=== PATIENT | female | born 1930 | race Caucasian/White ===

== ENCOUNTER 2017-01-09 18:15 | Emergency (ER) | payer MEDICARE, BC ==
[2017-01-09 18:30] VITALS: BP 117/57; PULSE 75; RESP 18; TEMP 98.1
[2017-01-09] MEDS ORDERED: MORPHINE SULFATE 10 MG/ML SYRINGE IM STA (18:50)
--- NOTE | 2017-01-09 18:56 | ED ---
Fall HPI - General Chief Complaint: Fall Stated Complaint: Fall rt arm injury Time Seen by Provider: 01/09/17 18:38 Source: patient, RN notes reviewed, old records reviewed Mode of arrival: wheelchair - History of Present Illness Initial Comments: Avinash showed feel presents emergency Department chief complaint of tripping over a curb and falling and hitting her left side of her forehead and right upper arm. She also reports that she hit her right knee. She reports that she did not lose consciousness. She is not on blood thinners. She states that the pain is worse whenever she has to move her upper arm and shoulder. She has had no previous fractures or no new injuries. She states that she has full range of motion in her hands and fingers. She also reports some pain with flexion and extension of the elbow. Patient denies any nausea or vomiting or any other symptoms. She states that she has history of high blood pressure. - Related Data Previous Rx's Medication Instructions Recorded HYDROcodone/APAP 5-325MG [Firth 1 - 2 tab PO Q6HR PRN #20 tab 01/09/17 5-325] Ondansetron Odt [Zofran Odt] 4 mg PO Q8HR PRN #12 tab 01/09/17 Allergies Allergy/AdvReac Type Severity Reaction Status Date / Time No Known Allergies Allergy Verified 01/09/17 18:30 Review of Systems ROS Statement: Those systems with pertinent positive or pertinent negative responses have been documented in the HPI. ROS Other: All systems not noted in ROS Statement are negative. Past Medical History Past Medical History: Hyperlipidemia, Hypertension History of Any Multi-Drug Resistant Organisms: None Reported Past Surgical History: Appendectomy, Heart Catheterization With Stent Past Psychological History: Depression Smoking Status: Never smoker Past Alcohol Use History: None Reported Past Drug Use History: None Reported General Exam - General Exam Comments Initial Comments: Pleasant 86-year-old female. Patient does appear in moderate discomfort. Limitations: no limitations General appearance: alert, in no apparent distress Head exam: Present: atraumatic, normocephalic, normal inspection Eye exam: Present: normal appearance, PERRL, EOMI. Absent: scleral icterus, conjunctival injection, periorbital swelling ENT exam: Present: normal exam, mucous membranes moist Neck exam: Present: normal inspection. Absent: tenderness, meningismus, lymphadenopathy Respiratory exam: Present: normal lung sounds bilaterally. Absent: respiratory distress, wheezes, rales, rhonchi, stridor Cardiovascular Exam: Present: regular rate, normal rhythm, normal heart sounds. Absent: systolic murmur, diastolic murmur, rubs, gallop, clicks GI/Abdominal exam: Present: soft, normal bowel sounds. Absent: distended, tenderness, guarding, rebound, rigid Extremities exam: Present: normal inspection, full ROM, normal capillary refill. Absent: tenderness, pedal edema, joint swelling, calf tenderness Right Shoulder Exam: Absent: normal inspection, full ROM Upper Arm exam: Present: tenderness, swelling. Absent: normal inspection, full ROM Elbow exam: Present: normal inspection, tenderness, swelling. Absent: full ROM Forearm Wrist exam: Present: normal inspection, full ROM Hand Wrist exam: Present: normal inspection, full ROM Vascular: Present: normal capillary refill Back exam: Present: normal inspection Neurological exam: Present: alert, oriented X3, CN II-XII intact Psychiatric exam: Present: normal affect, normal mood Skin exam: Present: warm, dry, intact, normal color. Absent: rash Course Vital Signs 01/09/17 18:26 Temperature 98.1 F Pulse Rate 75 Respiratory 18 Rate Blood Pressure 117/57 O2 Sat by Pulse 99 Oximetry Medical Decision Making - Medical Decision Making 86 showed feel presents emergency Department chief complaint of tripping over a curb and falling and hitting her left side of her forehead and right upper arm. She also reports that she hit her right knee. She reports that she did not lose consciousness. She is not on blood thinners. She states that the pain is worse whenever she has to move her upper arm and shoulder. Patient x-rays reviewed a significant comminuted fracture of the right proximal humerus. Patient CT brain was negative for any acute process. Patient was put in a sling and is nervous intact distal to the fracture. Patient's family felt comfortable with taking care of her at home. Patient will be discharged with a prescription for pain medication and advised to follow-up with Dr. Ocampo tomorrow morning. He did review the images and to discuss this case with Dr. Judd. Patient will be discharged at this time with head injury instructions and course of pain medication. - Radiology Data Radiology results: report reviewed There is an acute comminuted displaced fracture of the surgical neck of the right proximal humerus with just greater than [address] brain and C-spine shows there is no acute fracture dislocation evident the cervical spine. The mineralization and multilevel degenerative changes are shown a C6-C7. At C5-C6. There is no acute intracranial hemorrhage or midline shift seen. Moderate diffuse or atrophy and chronic small vessel ischemic change noted from progression of 2010 study. Small tiny acute left frontal scalp hematomas noted. Disposition Clinical Impression: Fracture of humerus, proximal, right, closed, Head injury, closed, without LOC Disposition: HOME SELF-CARE Condition: Good Instructions: Fall Prevention for Older Adults (ED), Proximal Humerus Fracture (ED) Additional Instructions: Patient advised to sleep upright with lots follows propping up the arm. Follow- up with Dr. Ocampo tomorrow morning. Take pain medication as directed. Patient advised to return to the emergency department if any alarming signs or symptoms occur. Call Dr. Ocampo in the morning and schedule appointment as soon as possible. Prescriptions: HYDROcodone/APAP 5-325MG [Firth 5-325] 1 - 2 tab PO Q6HR PRN #20 tab PRN Reason: Pain Ondansetron Odt [Zofran Odt] 4 mg PO Q8HR PRN #12 tab PRN Reason: Nausea Referrals: Torrie Jose MD [Primary Care Provider] - 1-2 days Enrique Ocampo MD [STAFF PHYSICIAN] - 1-2 days Time of Disposition: 20:13
--- NOTE | 2017-01-09 19:31 | CT ---
EXAMINATION TYPE: CT brain cspine wo con DATE OF EXAM: 01/09/2017 COMPARISON: CT brain November 17, 2009 HISTORY: Fall injury today with headache and neck pain. CT DLP: 1261.6 mGycm. Automated Exposure Control for Dose Reduction was Utilized. TECHNIQUE: CT scan of the head and cervical spine are performed without contrast. FINDINGS: There is no acute intracranial hemorrhage or midline shift identified. There is ventricul ar and sulcal prominence consistent with diffuse cerebral atrophy. There is low-attenuation in the pe riventricular white matter. Progression in findings from prior CT is noted. Right lens is thinned si milar to prior. Visualized paranasal sinuses are clear. The calvarium is intact. Small left frontal a cute scalp hematoma is seen on axial image 34 Cervical spine is visualized in its entirety from C1 through upper thoracic levels and demonstrates s atisfactory alignment without evidence of acute fracture or dislocation. Prevertebral soft tissue ap pears within normal limits. The C1-C2 articulation is within normal limits on the coronal images. Osseous structures are demineralized. Vertebral body heights are maintained. There is moderate disc s pace narrowing and spurring C6-C7 level. There is calcified disc herniation effacing anterior thecal sac C5-C6 level on sagittal and axial images. Review of axial images shows multilevel uncovertebral f acet degenerative changes on the right from C2-C3 through C5-C6 level. Moderate to advanced right-margareth ed neural foraminal narrowing is seen at C4-C5 level on axial image 38. There is asymmetric moderate left-sided neural foraminal narrowing C6-C7 level due to marginal spurring. Visualized lung apices ar e clear. Thyroid gland is felt within normal limits. IMPRESSION: 1. There is no acute fracture or dislocation evident in the cervical spine. Demineralization and mult ilevel degenerative changes are seen as detailed above. 2. No acute intracranial hemorrhage or midline shift is seen. There is moderate diffuse cerebral atro phy and chronic small vessel ischemic change noted with progression from 2010 study identified. Small to tiny acute left frontal scalp hematoma noted.
--- NOTE | 2017-01-09 19:34 | XR ---
EXAMINATION TYPE: XR humerus RT, XR elbow complete RT DATE OF EXAM: 01/09/2017 CLINICAL HISTORY: Pain after fall injury. TECHNIQUE: Two views of the right humerus are obtained. 3 views of right elbow are obtained. COMPARISON: None. FINDINGS: There is acute comminuted fracture surgical neck of right proximal humerus. Distal fractur e fragment is slightly displaced by 1.3 cm. There is 3 cm fragment including greater tuberosity noted . Osseous structures are demineralized. Acromioclavicular joint is maintained. The overlying soft ti ssue appears within normal limits. Images of right elbow show no additional acute fracture. No abnormal fat pad signs are seen. Overlyin g soft tissue is unremarkable. IMPRESSION: There is acute comminuted displaced fracture surgical neck of right proximal humerus with just greater than 1 cm displacement. (Initial encounter close type post traumatic fracture)
[2017-01-09] MEDS ORDERED: SODIUM CHLORIDE 0.9% 1,000 ML IV ONE (20:04)
--- NOTE | 2017-01-09 20:05 | XR ---
EXAMINATION TYPE: XR chest 2V DATE OF EXAM: 01/09/2017 COMPARISON: NONE HISTORY: Chest pain after fall injury. TECHNIQUE: Frontal and lateral views of the chest are obtained. FINDINGS: Lateral view is suboptimal due to overlap from upper extremity. There is chronic parenchyma l change without suspicious focal air space opacity, pleural effusion, or pneumothorax seen. The car diac silhouette size is within normal limits. The osseous structures are demineralized. An acute co mminuted displaced fracture right proximal humerus is redemonstrated. IMPRESSION: No acute cardiopulmonary process.
== END 2017-01-09 20:21 | disposition home or self-care (01) ==
LOC: EC 18:15
DX: S42.211A Unspecified displaced fracture of surgical neck of right humerus, initial encounter for closed fracture (principal); S09.90XA Unspecified injury of head, initial encounter; W01.10XA Fall on same level from slipping, tripping and stumbling with subsequent striking against unspecified object, initial encounter
CPT/HCPCS: 71020; 73060; 73080; 72125; 70450; 99284; 96372; J2270